=== PATIENT | female | born 1930 | race Caucasian/White ===

== ENCOUNTER 2016-09-19 11:11 | Emergency (ER) | payer MEDICARE ==
[~2016-09-19] VITALS: Ht 153.7 cm; Wt 54.1 kg
[~2016-09-19 11:11] MED LIST: ACET600C PO; ASCO-294 PO; AZEL23SP NS; Acetaminophen PO; CHOL10008 PO; CLON0.1T PO; CYCL1DRO AFFECT_EYE; CYCL1DRO OP; DESO15CR25 TOP; DIME25TA2 PO; FEXO-106 PO; FLUC150T3 PO; FLUT15.88 NS; IPRA15SP NS; KTC2C15 TP; MELA1TAB16 PO; METH4TAB12 PO; METO75TA PO; PROP1DRO BOTH_EYES; RANI150C4 PO; SERT25TA6 PO; SPIRONALACTONE PO; VITA2500 PO; VITA400C64 PO; WARF4TAB6 PO; ZOLP5TAB6 PO; [UNRECOGNIZED DRUG - OTHER] PO
[2016-09-19 11:21] VITALS: BP 167/102; PULSE 92; RESP 16; O2SAT 99
--- NOTE | 2016-09-19 11:25 | ED.REPORT ---
HPI-Trauma Minor / Fall Date of Service September 19, 2016 ED Provider: Yuri Yunier TONEY 86 year old female presents to the ER accompanied by her due to head injury status post mechanical ground level fall while lowering herself to the toilet this morning. She endorses striking her head during the fall but states that she didn't hit very hard. Patient denies LOC, neck pain, dysuria, and any significant injury secondary to the fall. expresses concern for the patient's mental status because the she initially attempted to open their laundry basket as if to urinate in it. Shortly after the incident her called patient's PCP, Dr. Ornelas, who referred her to the ER. She reports history of multiple falls over the past few months. Upon further questioning she admits to taking melatonin, Zolpidem, and Dramamine last night. Nursing Notes Stated Complaint: POST FALL/HEAD INJURY/CONFUSED Chief Complaint: Multiple Trauma/Fall Nursing Notes Reviewed: Yes Allergies: Coded Allergies: amlodipine besylate (Verified Allergy, Severe, RASH, 09/24/15) doxazosin mesylate (Verified Allergy, Severe, PALPITATIONS, LOW HEART RATE (35) AND IRREGULAR, 09/24/15) ipratropium bromide (Verified Allergy, Severe, PALPITATIONS AND DECREASED HEART RATE, 09/24/15) pt is prescribed med irbesartan (Verified Allergy, Severe, ARRHYTHMIA, 09/24/15) albuterol (Verified Allergy, Intermediate, PALPITATIONS AND DECREASED HEART RATE, 08/28/12) levalbuterol (Verified Allergy, Unknown, unknown, 09/24/15) cetirizine (Verified Adverse Reaction, Severe, palpitations, 09/24/15) citalopram (Verified Adverse Reaction, Severe, n&v, 09/24/15) clindamycin (Verified Adverse Reaction, Severe, diarrhea, 09/24/15) lisinopril (Verified Adverse Reaction, Severe, SEVERE COUGH, 09/24/15) valsartan (Verified Adverse Reaction, Severe, hair loss,palpitations, 09/23) hydrochlorothiazide (Verified Adverse Reaction, Intermediate, 09/24/15) tachycardia, arrhythmia naproxen (Verified Adverse Reaction, Intermediate, UPSET STOMACH, 09/24/15) oxycodone HCl (Verified Adverse Reaction, Intermediate, NAUSEA AND VOMITING, 09/24/15) Uncoded Allergies: NO SOAPS - EXCEPT NEUTROGENA CLEAR,FRAGRANCE FREE (Allergy, Unknown, ) TYLENOL WITH CODEINE (Adverse Reaction, Severe, CONFUSION, AGITATION, ) FLU SHOT (Adverse Reaction, Intermediate, GETS SICK FROM THE FLU SHOT, 08/28) Scheduled ([Spironalactone]) 12.5 MG PO DAILY HOLD Acetylcysteine (Nac) 600 Mg Capsule 600 MG PO DAILY Ascorbate Calcium (Vitamin C) 500 Mg Tablet 500 MG PO DAILY Azelastine/Fluticasone (Dymista Nasal [place]) 23 Gm [place].pump 1 SPRAY NS BID HOLD Azelastine/Fluticasone (Dymista Nasal [place]) 23 Gm [place].pump 1 SPRAY NS BID HOLD Cholecalciferol (Vitamin D3) (Vitamin D3) 1,000 Unit Tab.chew 1,000 UNIT PO BID Clonidine (Clonidine) 0.1 Mg Tablet 0.1 MG PO TID Cyclosporine (Restasis) 1 Each Droperette 1 EACH AFFECT_EYE BID Cyclosporine (Restasis) 1 Each [place]perette 1 EACH OP Q12H Desonide (Desonide Cream) 15 Gm Cream..g. 1 APPLIC TOP DAILY Fexofenadine (Fexofenadine) 180 Mg Tablet 180 MG PO DAILY HOLD Fluconazole (Fluconazole) 150 Mg Tablet 150 MG PO ONCE Fluticasone Propionate (Fluticasone Propionate) 50 Mcg/Actuation [place].susp 2 SPRAY NS DAILY Ipratropium [place] (Ipratropium [place] 0.06% Nasal) 15 Ml [place] 2 SPRAY NS DIRECTED HOLD Ketoconazole (Ketoconazole) 15 Gm Cream..g. 15 GM TP DIRECTED Methylprednisolone (MethylprednisoLONE) 4 Mg Tablet 4 MG PO UD Metoprolol Tartrate (Metoprolol Tartrate) 75 Mg Tablet 75 MG PO BID Propylene Glycol/Peg 400/Pf (Systane 0.3-0.4% Eye Drops) 1 Each [place] 1 EACH BOTH_EYES BID Ranitidine (Ranitidine) 150 Mg Capsule 150 MG PO BID Sertraline HCl (Sertraline) 25 Mg Tablet 25 MG PO DAILY Vitamin A (Vitamin A) 25,000 Unit Capsule 25,000 UNIT PO 4x/week Vitamin E Mixed (Vitamin E) 400 Unit Capsule 400 UNIT PO DAILY Warfarin Sodium (Warfarin Sodium) 4 Mg Tablet 4 MG PO HS Scheduled PRN ([Gas Free Xs]) 125 MG PO BID PRN PRN PRN ([Acetaminophen]) 325 MG TABLET 650 MG PO Q6H PRN PRN For Pain Dimenhydrinate (Dramamine) 25 Mg Tab.chew 50 MG PO Q6H PRN PRN prn Melatonin/Pyridoxine (Melatonin 5 mg Tablet) 1 Each Tablet 1 EACH PO HS PRN PRN prn Ranitidine (Ranitidine) 150 Mg Capsule 1-2 CAPSULE PO DAILY PRN PRN ALLERGY Zolpidem (Zolpidem) 5 Mg Tablet 5 MG PO HS PRN PRN For Insomnia General Time Seen by MD: 11:25 Chief Complaint Fall Hx Obtained From: Patient, Spouse Arrived By: Ambulance Onset Occurred: Just prior to arrival Symptom Duration: Since onset Caused by: Accidental, Fall on ground Context: Occurred at: Home injury Pertinent Negative: Pt denies other symptoms Similar Sx Previous: Yes Past Medical History Patient History: Patient reports no known family medical history. Past Medical History PAST MEDICAL HISTORY: 1. Hypertension. 2. Hyperaldosteronism. 3. 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 4. Asthma. 5. Hyperlipidemia. 6. Gastroesophageal reflux disease. 7. Arthritis. 8. Moderate aortic regurgitation. 9. Hyperthyroidism. Past Surgical History PAST SURGICAL HISTORY: 1. Tonsillectomy in 1956. 2. D and C in 1955, 1956, 1963 and 1964. 3. Thyroid adenoma excision in 1961. 4. Tubal ligation in 1973. 5. Stapedectomy, bilateral in 1978 and 1979. 6. Right knee arthroscopy in 1987. 7. Right foot bunionectomy in 1996. 8. Basal cell carcinoma excision from left cheek in 1996. 9. Right total knee replacement on January 27, 2004. 10. Revision left stapedectomy on June 04, 2005. 11. Lumbar laminectomy on September 18, 2006. 12. Hysteroscopy on May 16, 2007. 13. Basal cell carcinoma excision from nose on January 12, 2009. 14. Right nephrectomy and ureterectomy for transitional cell carcinoma on February 19, 2009. 15. Left carpal tunnel release on January 19, 2011. Smoking History Former Smoker Social History Alcohol Use: Denies alcohol use Drug Use: Denies drug use Ambulatory Status Independent Review of Systems Musculoskeletal: Denies: Back pain, Extremity pain, Lumbar pain, Neck pain, Thoracic pain Neurologic: Reports: Confusion, Denies: Headache, Numbness, Syncope Complete sys rev & neg: except as marked. Psychiatric: Reports: Change mental status Physical Exam Initial Vital Signs Vital Signs (First) Date Time Temp Pulse Resp B/P Pulse Ox O2 Delivery O2 Flow Rate FiO2 09/19/16 11:21 92 16 167/102 99 Room Air Initial VS: Reviewed Head / Eyes: Atraumatic, Normocephalic Abdomen / GI: Soft, Non-tender, No guarding, No rebound, No distention Extremities: Vascular intact, Neuro intact, No swelling, No tenderness Skin: Warm, Dry, No cyanosis Neurologic: Oriented General/Constitutional: Awake, Alert, Well developed, Well nourished Neck: Atraumatic, Supple, Full range of motion, No swelling, Non-tender, No midline vertebral tend Head / Eyes: Atraumatic, Normocephalic, PERRL Respiratory / Chest: Breath sounds NL, Breath sounds = bilat, No respiratory distress, No rales, No rhonchi, No wheezing, No chest tenderness, No chest wall deformity, No crepitus Cardiovascular: Heart rate NL, Regular rhythm, Heart sounds NL, Cap refill not delayed, Peripheral circulation NL Lower Extremity / Pelvis / MS: Full range of motion, Neurologic intact, Vascular intact Collection of spider veins to the anterior right ankle. Neurologic: Oriented X3, Speech NL, No motor deficits, No sensory deficits, CN II - XII intact, Cerebellar NL Interpretation & Diagnostics Lab Results Interpretation Result Diagram: 09/19/16 1203 09/19/16 1203 Test 09/19/16 12:03 09/19/16 12:46 09/19/16 12:55 White Blood Count 6.4th/mm3 (3.8-10.1) Red Blood Count 4.99mil/mm3 (3.90-5.20) Hemoglobin 14.4g/dL (12.0-15.6) Hematocrit 43.3% (35.0-46.0) Mean Corpuscular Volume 86.8fL (81-100) Mean Corpuscular Hemoglobin 28.9pg (27.0-35.0) Mean Corpuscular Hemoglobin Concent 33.3% (32.0-37.0) Red Cell Distribution Width 15.3% (12.3-15.4) Platelet Count 201bil/L (150-400) Neutrophils (%) (Auto) 72.8% (40-74) Lymphocytes (%) (Auto) 13.4% (14-46) Monocytes (%) (Auto) 11.3% (4-12) Eosinophils (%) (Auto) 2.2% (0-5) Basophils (%) (Auto) 0.3% (0-3) Prothrombin Time 23.7sec (8.1-12.5) Prothromb Time International Ratio 2.18ratio Sodium Level 135mEq/L (134-144) Potassium Level 4.3mEq/L (3.5-5.2) Chloride Level 96mEq/L (97-108) Carbon Dioxide Level 26mmol/L (18-29) Blood Urea Nitrogen 21mg/dL (8-27) Creatinine 0.76mg/dL (0.57-1.00) Estimat Glomerular Filtration Rate 104mL/min (>59) Glucose Level 101mg/dL (60-99) Calcium Level 10.2mg/dL (8.5-10.1) Total Bilirubin 1.2mg/dL (0.0-1.2) Aspartate Amino Transf (AST/SGOT) 22U/L (0-50) Alanine Aminotransferase (ALT/SGPT) 19U/L (0-32) Alkaline Phosphatase 117U/L (25-165) Total Protein 6.9g/dL (6.4-8.4) Albumin 4.1g/dL (3.4-5.0) Hold Gore Top Tube Received (Received) Urine Color Straw (YELLOW) Urine Appearance Hazy (CLEAR,HAZY) Urine pH 6.0 (5.0-8.0) Urine Specific [place] 1.010 (1.003-1.035) Urine Protein Negativemg/dL (NEG,TRACE) Urine Glucose (UA) Negativemg/dL (NEGATIVE) Urine Ketones Negativemg/dL (NEGATIVE) Urine Occult Blood Negative (NEGATIVE) Urine Nitrite Negative (NEGATIVE) Urine Bilirubin Negative (NEGATIVE) Urine Urobilinogen Normalmg/dL (NORMAL) Urine Leukocyte Esterase Negative (NEGATIVE) Urine RBC 0-2/hpf (0-2) Urine WBC 0-5/hpf (0-5) Urine Epithelial Cells Occasional/hpf (NONE-MOD) Urine Crystals None seen (NONE SEEN) Urine Bacteria None/hpf (NONE-FEW) Urine Hyaline Casts None/lpf (NONE) Urine Granular Casts None seen (NONE SEEN) Urine Waxy Casts None seen (NONE SEEN) Urine Red Blood Cell Casts None seen (NONE SEEN) Urine White Blood Cell Casts None seen (NONE SEEN) Urine Mucus None seen (None Seen) Urine Trichomonas None seen (NONE SEEN) Urine Yeast None (NONE SEEN) Urinalysis Comment None Urine Culture Reflexed Not indicated CT Head Interpretation IMPRESSION: 1. No acute intracranial process. 2. Moderate atrophy and chronic microvascular ischemic changes. Dictated by: Selma Robbins M.D. on 09/19/2016 at 12:19 Approved by: Selma Robbins M.D. on 09/19/2016 at 12:20 Study: Head CT no contrast Interpretation / Wet Read by: Interpret - Radiologist Re-Eval/Medical Decision Med Decision/Clinical Course Overall sounds like a mechanical fall secondary to polypharmacy. Patient admits to taking 3 different sleeping pills last night. Overall workup is reassuring. Head CT performed because of a fall on Coumadin. Return and follow-up precautions given. Source of Hx: Old records Re-Evaluation/Progress : Time of Eval: 13:20 Re-Evaluation/Progress Note: Discussed lab and imaging results and plan to discharge. Patient is amenable to the plan. Return precautions given. All other questions addressed. Counseled Regarding: Diagnosis, Lab results, Need for follow-up, When/why to return to ED Discharge & Departure Impression: Primary Impression: Fall at home Disposition: Home Discharge Condition All VS Reviewed: Yes Condition: Stable Additional Instructions: Take Tylenol for pain. Do not take more than one type of sleeping pill per day. Follow-up with your primary care provider later this week. Return to the ER if you develop new or concerning symptoms. Referrals: Sudhakar Nick MD (PCP) [place] Attestation Portions of this note were transcribed by Otto Ochoa. I, Dr. Welch, personally performed the history, physical exam and medical decision-making; I reviewed and confirmed the accuracy of the information in the transcribed note. Signed by: Shelley Suh, 09/19/2016 and *time* copies to: Sudhakar Nick MD, Timothy S DO September 19, 2016 11:25 OTTO OCHOA September 19, 2016 11:39
[2016-09-19 12:14] LABS: BASOPHILS % (AUTO) 0.3 % (0-3); EOSINOPHILS % (AUTO) 2.2 % (0-5); MONOCYTES % (AUTO) 11.3 % (4-12); Mean Corpuscular Hemoglobin 28.9 pg (27.0-35.0); Mean Corpuscular Volume 86.8 fL (81-100); NEUTROPHILS % (AUTO) 72.8 % (40-74); Platelet Count 201 bil/L (150-400)
--- NOTE | 2016-09-19 12:21 | DRSVH ---
PROCEDURE: CT BRAIN WITHOUT CONTRAST ([id number]) INDICATIONS: fall on coumadin, hit head TECHNIQUE: Noncontrast 4.5 mm thick angled axial sections acquired from the foramen magnum to the vertex, with c oronal reformats. COMPARISON: None. FINDINGS: Image quality: Excellent. CSF spaces: Basal cisterns are patent. No extra-axial fluid collections. The ventricles are symmet vanita in size and shape. Brain: No intracranial bleeds or masses. There is cerebral volume loss for age, with resultant vent ricular and sulcal prominence. There are periventricular and deep white matter chronic small vessel ischemic changes. There is intracranial internal carotid artery atherosclerosis. Skull and face: Calvarium and visualized facial bones appear intact, without suspicious lesions. Sinuses: Visualized sinuses and mastoids are clear. IMPRESSION: 1. No acute intracranial process. 2. Moderate atrophy and chronic microvascular ischemic changes. Dictated by: Selma Robbins M.D. on 09/19/2016 at 12:19 Approved by: Selma Robbins M.D. on 09/19/2016 at 12:20
[2016-09-19 12:37] LABS: INR 2.18 ratio
[2016-09-19 13:09] LABS: APPEARANCE,URINE HAZY (CLEAR,HAZY); COLOR,URINE STRAW (YELLOW)
[2016-09-19 13:10] LABS: OCCULT BLOOD,URINE NEGATIVE (NEGATIVE); UROBILINOGEN,URINE NORMAL (NORMAL)
[2016-09-19 13:37] VITALS: BP 167/105; PULSE 86; RESP 16; O2SAT 100
== END 2016-09-19 13:37 | disposition home or self-care (01) ==
LOC: SED 11:11
DX: Z04.3 Encounter for examination and observation following other accident (principal); W18.30XA Fall on same level, unspecified, initial encounter; Y92.002 Bathroom of unspecified non-institutional (private) residence as the place of occurrence of the external cause; Y93.89 Activity, other specified; Y99.8 Other external cause status; I10 Essential (primary) hypertension; E26.9 Hyperaldosteronism, unspecified; J45.909 Unspecified asthma, uncomplicated; E78.5 Hyperlipidemia, unspecified; K21.9 Gastro-esophageal reflux disease without esophagitis; M19.90 Unspecified osteoarthritis, unspecified site; E05.90 Thyrotoxicosis, unspecified without thyrotoxic crisis or storm; Z91.81 History of falling; Z90.5 Acquired absence of kidney; Z90.6 Acquired absence of other parts of urinary tract; Z87.891 Personal history of nicotine dependence; Z79.01 Long term (current) use of anticoagulants; Z88.8 Allergy status to other drugs, medicaments and biological substances; Z88.1 Allergy status to other antibiotic agents; Z88.6 Allergy status to analgesic agent; Z88.5 Allergy status to narcotic agent; Z88.7 Allergy status to serum and vaccine

== ENCOUNTER 2016-12-19 08:11 | Inpatient (IN) | payer MEDICARE ==
[2016-12-19 08:15] VITALS: BP 124/96; PULSE 93; RESP 26; O2SAT 98
[2016-12-19] MEDS ORDERED: 0.9% Sodium Chloride 1,000 ML IV ONE (08:17)
[2016-12-19 08:20] VITALS: BP 124/96; PULSE 89; RESP 24; O2SAT 100
[2016-12-19] MEDS ORDERED: Ondansetron 2 mg/mL 2 mL Inj IVPUSH PRN (08:20)
--- NOTE | 2016-12-19 08:29 | ED.REPORT ---
HPI-Neurologic Deficit Date of Service Dec 19, 2016 ED Provider: Yunier Welch DO Patient is a n 86 year old female with a hx of HTN, Thyroid disease, valvular heart disease, hyperlipidemia, asthma, kidney cancer, and afib on Warfarin who presents to the ED via EMS for a decreased LOC found by her 20 minutes prior to arrival. Her last known normal was last night. Her reports she has had a general decline over the weekend. Per records reviewed, she is DNR as of 2010 during her last admission here. Multiple attempts to contact family were made without success. Nursing Notes Stated Complaint: LEFT SIDED DROOP Chief Complaint: Neuro Symptoms/ Deficits Nursing Notes Reviewed: Yes Allergies: Coded Allergies: amlodipine besylate (Verified Allergy, Severe, RASH, 09/24/15) doxazosin mesylate (Verified Allergy, Severe, PALPITATIONS, LOW HEART RATE (35) AND IRREGULAR, 09/24/15) ipratropium bromide (Verified Allergy, Severe, PALPITATIONS AND DECREASED HEART RATE, 09/24/15) pt is prescribed med irbesartan (Verified Allergy, Severe, ARRHYTHMIA, 09/24/15) albuterol (Verified Allergy, Intermediate, PALPITATIONS AND DECREASED HEART RATE, 08/28/12) levalbuterol (Verified Allergy, Unknown, unknown, 09/24/15) cetirizine (Verified Adverse Reaction, Severe, palpitations, 09/24/15) citalopram (Verified Adverse Reaction, Severe, n&v, 09/24/15) clindamycin (Verified Adverse Reaction, Severe, diarrhea, 09/24/15) lisinopril (Verified Adverse Reaction, Severe, SEVERE COUGH, 09/24/15) valsartan (Verified Adverse Reaction, Severe, hair loss,palpitations, 09/23) hydrochlorothiazide (Verified Adverse Reaction, Intermediate, 09/24/15) tachycardia, arrhythmia naproxen (Verified Adverse Reaction, Intermediate, UPSET STOMACH, 09/24/15) oxycodone HCl (Verified Adverse Reaction, Intermediate, NAUSEA AND VOMITING, 09/24/15) Uncoded Allergies: NO SOAPS - EXCEPT NEUTROGENA CLEAR,FRAGRANCE FREE (Allergy, Unknown, ) TYLENOL WITH CODEINE (Adverse Reaction, Severe, CONFUSION, AGITATION, ) FLU SHOT (Adverse Reaction, Intermediate, GETS SICK FROM THE FLU SHOT, 08/28) Scheduled ([Spironalactone]) 12.5 MG PO DAILY HOLD Acetylcysteine (Nac) 600 Mg Capsule 600 MG PO DAILY Ascorbate Calcium (Vitamin C) 500 Mg Tablet 500 MG PO DAILY Azelastine/Fluticasone (Dymista Nasal [place]) 23 Gm [place].pump 1 SPRAY NS BID HOLD Cholecalciferol (Vitamin D3) (Vitamin D3) 1,000 Unit Tab.chew 1,000 UNIT PO BID Clonidine (Clonidine) 0.1 Mg Tablet 0.1 MG PO TID Cyclosporine (Restasis) 1 Each Droperette 1 EACH AFFECT_EYE BID Cyclosporine (Restasis) 1 Each Droperette 1 EACH OP Q12H Desonide (Desonide Cream) 15 Gm Cream..g. 1 APPLIC TOP DAILY Fexofenadine (Fexofenadine) 180 Mg Tablet 180 MG PO DAILY HOLD Fluconazole (Fluconazole) 150 Mg Tablet 150 MG PO ONCE Fluticasone Propionate (Fluticasone Propionate) 50 Mcg/Actuation [place].susp 2 SPRAY NS DAILY Ipratropium [place] (Ipratropium [place] 0.06% Nasal) 15 Ml [place] 2 SPRAY NS DIRECTED HOLD Ketoconazole (Ketoconazole) 15 Gm Cream..g. 15 GM TP DIRECTED Methylprednisolone (MethylprednisoLONE) 4 Mg Tablet 4 MG PO UD Metoprolol Tartrate (Metoprolol Tartrate) 75 Mg Tablet 75 MG PO BID Propylene Glycol/Peg 400/Pf (Systane 0.3-0.4% Eye Drops) 1 Each Droperette 1 EACH BOTH_EYES BID Ranitidine (Ranitidine) 150 Mg Capsule 150 MG PO BID Sertraline HCl (Sertraline) 25 Mg Tablet 25 MG PO DAILY Vitamin A (Vitamin A) 25,000 Unit Capsule 25,000 UNIT PO 4x/week Vitamin E Mixed (Vitamin E) 400 Unit Capsule 400 UNIT PO DAILY Warfarin Sodium (Warfarin Sodium) 4 Mg Tablet 4 MG PO HS Scheduled PRN ([Gas Free Xs]) 125 MG PO BID PRN PRN PRN ([Acetaminophen]) 325 MG TABLET 650 MG PO Q6H PRN PRN For Pain Dimenhydrinate (Dramamine) 25 Mg Tab.chew 50 MG PO Q6H PRN PRN prn Melatonin/Pyridoxine (Melatonin 5 mg Tablet) 1 Each Tablet 1 EACH PO HS PRN PRN prn Ranitidine (Ranitidine) 150 Mg Capsule 1-2 CAPSULE PO DAILY PRN PRN ALLERGY Zolpidem (Zolpidem) 5 Mg Tablet 5 MG PO HS PRN PRN For Insomnia General Time Seen by Provider: 08:12 Chief Complaint Mental status change Hx Obtained From: EMS Arrived By: Ambulance Sudden in Onset?: Yes Context of Onset: During sleep Risk Factors NIH Stroke Scale NIHSS Score: 27 (using modified stroke scale ) Time NIHSS Performed: 08:13 Date NIHSS Performed: Dec 19, 2016 [place] Coma Score > Age 5 Eye Opening: No response (1) Verbal Response: Incomprehensible (2) Motor Response: Withdraws to pain (4) [place] Coma Score: 7 Past Medical History Patient History: Patient reports no known family medical history. Past Medical History PAST MEDICAL HISTORY: 1. Hypertension. 2. Hyperaldosteronism. 3. 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 4. Asthma. 5. Hyperlipidemia. 6. Gastroesophageal reflux disease. 7. Arthritis. 8. Moderate aortic regurgitation. 9. Hyperthyroidism. 10. valvular heart disease Past Surgical History PAST SURGICAL HISTORY: 1. Tonsillectomy in 1956. 2. D and C in 1955, 1956, 1963 and 1964. 3. Thyroid adenoma excision in 1961. 4. Tubal ligation in 1973. 5. Stapedectomy, bilateral in 1978 and 1979. 6. Right knee arthroscopy in 1987. 7. Right foot bunionectomy in 1996. 8. Basal cell carcinoma excision from left cheek in 1996. 9. Right total knee replacement on January 27, 2004. 10. Revision left stapedectomy on June 04, 2005. 11. Lumbar laminectomy on September 18, 2006. 12. Hysteroscopy on May 16, 2007. 13. Basal cell carcinoma excision from nose on January 12, 2009. 14. Right nephrectomy and ureterectomy for transitional cell carcinoma on February 19, 2009. 15. Left carpal tunnel release on January 19, 2011. Smoking History Former Smoker Social History Alcohol Use: Denies alcohol use Drug Use: Denies drug use Ambulatory Status Independent Unable to Obtain History Past medical history, Past surgical history, Family history, Smoking history, Social history, Occupation, Ambulatory status Review of Systems Unable to Obtain ROS Patient condition, Mental status Physical Exam Initial Vital Signs Vital Signs (First) Date Time Temp Pulse Resp B/P Pulse Ox O2 Delivery O2 Flow Rate FiO2 12/19/16 08:15 93 26 124/96 98 Room Air 12/19/16 08:20 36.4 Initial VS: Reviewed, Vital signs abnormal Skin: Warm, Dry Alertness: Positive: Responds to pain stimuli, Somnolent Head / Eyes: Atraumatic, Normocephalic L sided facial droop Respiratory / Chest: Atraumatic, Breath sounds = bilat coarse rhonchi bilat, hypoxic Cardiovascular: Heart rate NL Mental Status: Positive: Responds to painful stim, Somnolent Stroke scale score 27 Neck: No swelling Fixed gaze Upper Extremity / MS: Atraumatic Lower Extremity / Pelvis / MS: Atraumatic Interpretation & Diagnostics Lab Results Interpretation Result Diagram: 12/19/1682112/19/16 0822 Test 12/19/16 08:22 White Blood Count 8.4th/mm3 (3.8-10.1) Red Blood Count 5.32mil/mm3 (3.90-5.20) Hemoglobin 15.2g/dL (12.0-15.6) Hematocrit 46.4% (35.0-46.0) Mean Corpuscular Volume 87.2fL (81-100) Mean Corpuscular Hemoglobin 28.6pg (27.0-35.0) Mean Corpuscular Hemoglobin Concent 32.8% (32.0-37.0) Red Cell Distribution Width 15.0% (12.3-15.4) Platelet Count 235bil/L (150-400) Neutrophils (%) (Auto) 61.5% (40-74) Lymphocytes (%) (Auto) 22.6% (14-46) Monocytes (%) (Auto) 11.9% (4-12) Eosinophils (%) (Auto) 3.5% (0-5) Basophils (%) (Auto) 0.4% (0-3) Prothrombin Time 38.9sec (8.1-12.5) Prothromb Time International Ratio 3.54ratio Activated Partial Thromboplast Time 39.4sec (22.8-33.0) Sodium Level 139mEq/L (134-144) Potassium Level 4.2mEq/L (3.5-5.2) Chloride Level 98mEq/L (97-108) Carbon Dioxide Level 23mmol/L (18-29) Blood Urea Nitrogen 18mg/dL (8-27) Creatinine 0.76mg/dL (0.57-1.00) Estimat Glomerular Filtration Rate 104mL/min (>59) Glucose Level 112mg/dL (60-99) Calcium Level 10.0mg/dL (8.5-10.1) Total Bilirubin 1.6mg/dL (0.0-1.2) Aspartate Amino Transf (AST/SGOT) 23U/L (0-50) Alanine Aminotransferase (ALT/SGPT) 22U/L (0-32) Alkaline Phosphatase 121U/L (25-165) Troponin T 0.010ug/L (0.0-0.011) Total Protein 6.9g/dL (6.4-8.4) Albumin 4.2g/dL (3.4-5.0) X-Ray Chest Interpretation Chest Xray Interpretation: IMPRESSION: Mild pulmonary edema pattern but no focal consolidation found. The heart size is at or just below the upper limits of normal considering patient rotation leftward. Dictated by: Patrick Menchaca M.D. on 12/19/2016 at 9:01 Approved by: Patrick Menchaca M.D. on 12/19/2016 at 9:03 View: Portable, 1 view Interpretation / Wet Read by: Interpret - Radiologist CT Head Interpretation IMPRESSION: 1. Large acute right basal ganglia parenchymal bleed with extension into the ventricles. 2. Approximately 1.1 cm of [id number] subfalcine herniation. 3. Findings telephoned to Dr. Yunier Welch on 12/19/16 at 0839 hours. Dictated by: Jeannie Wiseman MD, PhD on 12/19/2016 at 8:38 Approved by: Jeannie Wiseman MD, PhD on 12/19/2016 at 8:44 Study: Head CT no contrast Interpretation / Wet Read by: Interpret - Radiologist Re-Eval/Medical Decision Med Decision/Clinical Course Devastating intracranial hemorrhage with warfarin induced coagulopathy, severe altered level of consciousness, and hypoxia. Care was initiated prior to arrival when prehospital staff notify us of a high-risk patient. Physician, nurses, and other ancillary staff were at the bedside awaiting this patient. She was found to be severely altered with a low [place] Coma Scale. However after reviewing records it appeared that she was previously a DO NOT RESUSCITATE DO NOT INTUBATE patient. She was placed on high flow oxygen rather than intubation. She was sent urgently over to CT which revealed a massive intracranial hemorrhage with midline shift. Multiple attempts were made at contacting family and were unsuccessful via telephone. Ultimately the showed up, confirmed the patient's wishes to be DNR/DNI. At that point patient care was descalated and the patient was made comfort measures only. It should be noted that vitamin K and K Centra were ordered however not given. Patient will be admitted for comfort measures and expectant management Re-Evaluation/Progress #1: Time of Eval: 08:43 )( Re-Eval Neurologic Exam: Speech abnormal Re-Evaluation/Progress Note: Patient is 93% on non-rebreather continues to be somnolent Re-Evaluation/Progress #2: Time of Eval: 08:46 )( Re-Eval Neurologic Exam: Speech abnormal Re-Evaluation/Progress Note: Rechecked patient who is stable. has arrived. reports he woke and found the patient with a L facial droop and he could not get her to stand. He proceeded to call EMS. He denies pt having any recent falls. Discussed pt's case and confirmed that pt is DNR. Discussed plan for admission. Pt's understands and agrees with plan. All questions addressed at this time. Re-Evaluation/Progress #3: Time of Eval: 09:03 )( Re-Eval Neurologic Exam: Speech abnormal Re-Evaluation/Progress Note: Rechecked pt. Removed oxygen. 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 Accepts admit. Counseled Regarding: Diagnosis, Lab results, Need for admission Discharge & Departure Impression: Primary Impression: Hemorrhagic stroke Disposition: ADMITTED TO HOSPITAL Discharge Condition All VS Reviewed: Yes Condition: Stable Referrals: Sudhakar Nick MD (PCP) Crit Care Except Billable Proc Time Spent: 75-104 minutes Services Performed: Patient management by me, Time spent at bedside, Reviewing test results, Reviewing imaging, Discussing patient care, Documentation in record, Time with fam/surrogate Critical Care Notes: See MDM Scribe Attestation Portions of this note were transcribed by Ronn Haynes. I, Dr. Welch personally performed the history, physical exam and medical decision-making; I reviewed and confirmed the accuracy of the information in the transcribed note. Signed by: Shelley Rice, 12/19/16 copies to: Sudhakar Nick MD, Timothy S DO Dec 19, 2016 08:29 RONN HAYNES Dec 19, 2016 08:46
[2016-12-19 08:30] LABS: BASOPHILS % (AUTO) 0.4 % (0-3); EOSINOPHILS % (AUTO) 3.5 % (0-5); MONOCYTES % (AUTO) 11.9 % (4-12); Mean Corpuscular Hemoglobin 28.6 pg (27.0-35.0); Mean Corpuscular Volume 87.2 fL (81-100); NEUTROPHILS % (AUTO) 61.5 % (40-74); Platelet Count 235 bil/L (150-400)
[2016-12-19 08:35] LABS: INR 3.54 ratio
[2016-12-19 08:40] LABS: TROPONIN T 0.01 ug/L (0.0-0.011)
[2016-12-19] MEDS ORDERED: Phytonadione (Adult) 10 MG in Dextrose 5%-Pha MIX 50 ML IV ONE (08:45)
[2016-12-19] MEDS ORDERED: PROTHROMBIN COMPLEX IV ONE (08:45)
[2016-12-19] MEDS ORDERED: Labetalol 5 mg/mL 4 mL Inj IVPUSH ONE (08:45)
--- NOTE | 2016-12-19 08:46 | DRSVH ---
PROCEDURE: CT BRAIN WITHOUT CONTRAST ([id number]) INDICATIONS: Decreased level of consciousness. TECHNIQUE: Noncontrast 4.5 mm thick angled axial sections acquired from the foramen magnum to the vertex, with c oronal reformats. COMPARISON: None. FINDINGS: Image quality: Excellent. CSF spaces: Basal cisterns are patent. No extra-axial fluid collections. The ventricles are symmet vanita in size and shape. Brain: Large parenchymal hematoma measuring approximately 6 cm in diameter centered in the right basa l ganglia. There is extension of the parenchymal bleed into the ventricles with acute hemorrhage note d in the lateral ventricles, third ventricle, cerebral aqueduct, the fourth ventricles and extending to the foramina of [place]. There is approximately 1.1 cm of right to left subfalcine herniation. The re is cerebral volume loss for age, with resultant ventricular and sulcal prominence. There are farnaz ventricular and deep white matter chronic small vessel ischemic changes. There is intracranial inter nal carotid artery and vertebral artery atherosclerosis. Skull and face: Calvarium and visualized facial bones appear intact, without suspicious lesions. Sinuses: Visualized sinuses and mastoids are clear. IMPRESSION: 1. Large acute right basal ganglia parenchymal bleed with extension into the ventricles. 2. Approximately 1.1 cm of [id number]-ri-mxmc subfalcine herniation. 3. Findings telephoned to Dr. Yunier Welch on 12/19/16 at 0839 hours. Dictated by: Jeannie Wiseman MD, PhD on 12/19/2016 at 8:38 Approved by: Jeannie Wiseman MD, PhD on 12/19/2016 at 8:44
--- NOTE | 2016-12-19 09:04 | DRSVH ---
PROCEDURE: X-RAY CHEST ONE VIEW, PORTABLE ([id number]) INDICATIONS: cva, aspiration TECHNIQUE: One view of the chest was acquired. COMPARISON: [facility], , CHEST 1VW (PORTABLE), 09/20/2012, 22:02. FINDINGS: Surgical changes and devices: None. Lungs and pleura: No pleural effusions or pneumothorax. Lungs are abnormal with a mild pulmonary ed murali pattern. Mediastinum: Mediastinal contours appear normal. Heart size is normal considering patient rotation leftward. Bones and chest wall: No suspicious bony lesions. Overlying soft tissues appear unremarkable. IMPRESSION: Mild pulmonary edema pattern but no focal consolidation found. The heart size is at or j ust below the upper limits of normal considering patient rotation leftward. Dictated by: Patrick Menchaca M.D. on 12/19/2016 at 9:01 Approved by: Patrick Menchaca M.D. on 12/19/2016 at 9:03
[2016-12-19 09:38] VITALS: BP 180/122
[2016-12-19] MEDS ORDERED: NS IV SCH (10:10)
[2016-12-19] MEDS ORDERED: MORPHINE IV SCH (10:10)
[2016-12-19 10:33] VITALS: BP 180/122; PULSE 89; RESP 24; O2SAT 100
--- NOTE | 2016-12-19 11:02 | NUR ---
pt shortly after getting to room 1025 pt checked by 2 RNS was found to have no heartbeat or breath sounds, pupils fixed and dilated. given as much time as he needed to spend with pt. He is still undecided on a home. He will be notifying us of his decision. Pt was wearing no jewelry except her watch, watch and personal clothing sent home with . Dr Morales notified of pts passing.
--- NOTE | 2016-12-19 12:12 | NUR ---
spiritual care: support to family met in ER, accompanied him to room 1025, supportive listening, contact assistance, Pt peacefully. prayer. Pt's culinary intern arrived shortly afterwards.
--- NOTE | 2016-12-19 12:24 | NUR ---
mophine gtt received 100cc bag of morphine 1mg/1cc from [facility] when pt was transferred to floor, pt before had a chance to start it. Bag was wasted by this nurse with Yu Colon as witness.
--- NOTE | 2016-12-19 14:18 | PCM.HPMED ---
Subjective Date of Service Dec 19, 2016 Primary Provider: Admitting Physician: Brcue Morales MD Primary Care Physician: Sudhakar Nick MD Attending Physician: Bruce Morales MD Admit Status: From the Emergency Department, Full Admit Chief Complaint: Loss of Consciousness/20 minutes prior to arrival History of Present Illness: History limited due to patient's status with patient in coma was GCS 3 per ED not e Patient is a n 86 year old female with a hx of HTN, Thyroid disease, valvular heart disease, hyperlipidemia, asthma, kidney cancer, and afib on Warfarin who presents to the ED via EMS for a decreased LOC found by her 20 minutes prior to arrival. Her last known normal was last night. Her reports she has had a general decline over the weekend. Per records reviewed, she is DNR as of 2010 during her last admission here, Patient reportedly was found was a floor by her 20 minutes prior to arrival . ED coruse:She was found to be unresponsive with GCS 3/15 , acute hypoxic respiratory failure saturating the 70s CT Large acute right basal ganglia parenchymal bleed with extension into the ventricles. arrived to ED ,he opted for comfort care when he understood situation Patient was started on morphine drip and admission requested for comfort care inpatient course : Patient admitted to [facility] . Exam limited with GCS 3/15, patient gasping She few minutes after arrival to the floor Pronounced at 1102 Review of Systems: Unable to obtain Allergies Coded Allergies: amlodipine besylate (Verified Allergy, Severe, RASH, 09/24/15) doxazosin mesylate (Verified Allergy, Severe, PALPITATIONS, LOW HEART RATE (35) AND IRREGULAR, 09/24/15) ipratropium bromide (Verified Allergy, Severe, PALPITATIONS AND DECREASED HEART RATE, 09/24/15) pt is prescribed med irbesartan (Verified Allergy, Severe, ARRHYTHMIA, 09/24/15) albuterol (Verified Allergy, Intermediate, PALPITATIONS AND DECREASED HEART RATE, 08/28/12) levalbuterol (Verified Allergy, Unknown, unknown, 09/24/15) cetirizine (Verified Adverse Reaction, Severe, palpitations, 09/24/15) citalopram (Verified Adverse Reaction, Severe, n&v, 09/24/15) clindamycin (Verified Adverse Reaction, Severe, diarrhea, 09/24/15) lisinopril (Verified Adverse Reaction, Severe, SEVERE COUGH, 09/24/15) valsartan (Verified Adverse Reaction, Severe, hair loss,palpitations, 09/23) hydrochlorothiazide (Verified Adverse Reaction, Intermediate, 09/24/15) tachycardia, arrhythmia naproxen (Verified Adverse Reaction, Intermediate, UPSET STOMACH, 09/24/15) oxycodone HCl (Verified Adverse Reaction, Intermediate, NAUSEA AND VOMITING, 09/24/15) Uncoded Allergies: NO SOAPS - EXCEPT NEUTROGENA CLEAR,FRAGRANCE FREE (Allergy, Unknown, ) TYLENOL WITH CODEINE (Adverse Reaction, Severe, CONFUSION, AGITATION, ) FLU SHOT (Adverse Reaction, Intermediate, GETS SICK FROM THE FLU SHOT, 08/28) Home Medications per ED note Scheduled ([Spironalactone]) 12.5 MG PO DAILY HOLD Acetylcysteine (Nac) 600 Mg Capsule 600 MG PO DAILY Ascorbate Calcium (Vitamin C) 500 Mg Tablet 500 MG PO DAILY Azelastine/Fluticasone (Dymista Nasal [place]) 23 Gm [place].pump 1 SPRAY NS BID HOLD Cholecalciferol (Vitamin D3) (Vitamin D3) 1,000 Unit Tab.chew 1,000 UNIT PO BID Clonidine (Clonidine) 0.1 Mg Tablet 0.1 MG PO TID Cyclosporine (Restasis) 1 Each Droperette 1 EACH AFFECT_EYE BID Cyclosporine (Restasis) 1 Each [place]pe[place] 1 EACH OP Q12H Desonide (Desonide Cream) 15 Gm Cream..g. 1 APPLIC TOP DAILY Fexofenadine (Fexofenadine) 180 Mg Tablet 180 MG PO DAILY HOLD Fluconazole (Fluconazole) 150 Mg Tablet 150 MG PO ONCE Fluticasone Propionate (Fluticasone Propionate) 50 Mcg/Actuation [place].susp 2 SPRAY NS DAILY Ipratropium [place] (Ipratropium [place] 0.06% Nasal) 15 Ml [place] 2 SPRAY NS DIRECTED HOLD Ketoconazole (Ketoconazole) 15 Gm Cream..g. 15 GM TP DIRECTED Methylprednisolone (MethylprednisoLONE) 4 Mg Tablet 4 MG PO UD Metoprolol Tartrate (Metoprolol Tartrate) 75 Mg Tablet 75 MG PO BID Propylene Glycol/Peg 400/Pf (Systane 0.3-0.4% Eye Drops) 1 Each [place] 1 EACH BOTH_EYES BID Ranitidine (Ranitidine) 150 Mg Capsule 150 MG PO BID Sertraline HCl (Sertraline) 25 Mg Tablet 25 MG PO DAILY Vitamin A (Vitamin A) 25,000 Unit Capsule 25,000 UNIT PO 4x/week Vitamin E Mixed (Vitamin E) 400 Unit Capsule 400 UNIT PO DAILY Warfarin Sodium (Warfarin Sodium) 4 Mg Tablet 4 MG PO HS Scheduled PRN ([Gas Free Xs]) 125 MG PO BID PRN PRN PRN ([Acetaminophen]) 325 MG TABLET 650 MG PO Q6H PRN PRN For Pain Dimenhydrinate (Dramamine) 25 Mg Tab.chew 50 MG PO Q6H PRN PRN prn Melatonin/Pyridoxine (Melatonin 5 mg Tablet) 1 Each Tablet 1 EACH PO HS PRN PRN prn Ranitidine (Ranitidine) 150 Mg Capsule 1-2 CAPSULE PO DAILY PRN PRN ALLERGY Zolpidem (Zolpidem) 5 Mg Tablet 5 MG PO HS PRN PRN For Insomnia PMH per ED note \ PAST MEDICAL HISTORY: 1. Hypertension. 2. Hyperaldosteronism. 3. 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 4. Asthma. 5. Hyperlipidemia. 6. Gastroesophageal reflux disease. 7. Arthritis. 8. Moderate aortic regurgitation. 9. Hyperthyroidism. 10. valvular heart disease Surgical History per ED note PAST SURGICAL HISTORY: 1. Tonsillectomy in 1956. 2. D and C in 1955, 1956, 1963 and 1964. 3. Thyroid adenoma excision in 1961. 4. Tubal ligation in 1973. 5. Stapedectomy, bilateral in 1978 and 1979. 6. Right knee arthroscopy in 1987. 7. Right foot bunionectomy in 1996. 8. Basal cell carcinoma excision from left cheek in 1996. 9. Right total knee replacement on January 27, 2004. 10. Revision left stapedectomy on June 04, 2005. 11. Lumbar laminectomy on September 18, 2006. 12. Hysteroscopy on May 16, 2007. 13. Basal cell carcinoma excision from nose on January 12, 2009. 14. Right nephrectomy and ureterectomy for transitional cell carcinoma on February 19, 2009. 15. Left carpal tunnel release on January 19, 2011. Family History Unable to obtain Social History Hx Alcohol Use: No Hx Substance Use: No Hx Tobacco Use: Yes (QUIT 45 YEARS AGO.) Smoking Status: Former Smoker Exam Vital Signs Vital Sign - Last Date Time Temp Pulse Resp B/P Pulse Ox O2 Delivery O2 Flow Rate FiO2 12/19/16 10:33 36.4 89 24 180/122 100 Room Air Exam GCS 3/15 pupils dilated ronchi all over no sign of trauma , no laceration Lab and Diagnostics Result Diagram: 12/19/1682112/19/16 08 X-Rays, CTs and MRIs PROCEDURE: CT BRAIN WITHOUT CONTRAST ([id number]) INDICATIONS: Decreased level of consciousness. TECHNIQUE: Noncontrast 4.5 mm thick angled axial sections acquired from the foramen magnum to the vertex, with coronal reformats. COMPARISON: None. FINDINGS: Image quality: Excellent. CSF spaces: Basal cisterns are patent. No extra-axial fluid collections. The ventricles are symmetric in size and shape. Brain: Large parenchymal hematoma measuring approximately 6 cm in diameter centered in the right basal ganglia. There is extension of the parenchymal bleed into the ventricles with acute hemorrhage noted in the lateral ventricles , third ventricle, cerebral aqueduct, the fourth ventricles and extending to the foramina of [place]. There is approximately 1.1 cm of right to left subfalcine herniation. There is cerebral volume loss for age, with resultant ventricular and sulcal prominence. There are periventricular and deep white matter chronic small vessel ischemic changes. There is intracranial internal carotid artery and vertebral artery atherosclerosis. Skull and face: Calvarium and visualized facial bones appear intact, without suspicious lesions. Sinuses: Visualized sinuses and mastoids are clear. IMPRESSION: 1. Large acute right basal ganglia parenchymal bleed with extension into the ventricles. 2. Approximately 1.1 cm of yqjii-[id number] subfalcine herniation. 3. Findings telephoned to Dr. Yunier Welch on 12/19/16 at 0839 hours. Dictated by: Jeannie Wiseman MD, PhD on 12/19/2016 at 8:38 Assessment & Plan 86 year old female with a hx of HTN, Thyroid disease, valvular heart disease, hyperlipidemia, asthma, kidney cancer, and afib on Warfarin who presents to the ED via EMS for a decreased LOC found by her 20 minutes prior to arrival. # acute right basal ganglia parenchymal bleed with extension into the ventricles -ICH in setting of warfarin therapy -Reversal of anticoagulation not done per family opted for comfort care -Pronounced at 1102 -cause of hemorrhagic stroke in setting of warfarin therapy # acute hypoxic respiratory failure -initial sat 70's # h/o Afib on warfarin Bruce Morales MD Dec 19, 2016 14:18
--- NOTE | 2016-12-19 14:36 | PCM.DC.MED ---
Discharge Summary Date of Service Dec 19, 2016 Dates of Hospitalization Date of Hospital Admission Dec 19, 2016 at 10:21 Date of Discharge: Dec 19, 2016 Providers: Admitting Physician: Bruce Morales MD Primary Care Physician: Sudhakar Nick MD Attending Physician: Bruce Morales MD Diagnosis at Time of Discharge Diagnosis at Time of Discharge # acute right basal ganglia parenchymal bleed with extension into the ventricles /hemorrhagic stroke in setting of warfarin use # acute hypoxic respiratory failure due to stroke # afib on warfarin Procedures XRay, CTs & MRIs PROCEDURE: CT BRAIN WITHOUT CONTRAST ([id number]) INDICATIONS: Decreased level of consciousness. TECHNIQUE: Noncontrast 4.5 mm thick angled axial sections acquired from the foramen magnum to the vertex, with coronal reformats. COMPARISON: None. FINDINGS: Image quality: Excellent. CSF spaces: Basal cisterns are patent. No extra-axial fluid collections. The ventricles are symmetric in size and shape. Brain: Large parenchymal hematoma measuring approximately 6 cm in diameter centered in the right basal ganglia. There is extension of the parenchymal bleed into the ventricles with acute hemorrhage noted in the lateral ventricles , third ventricle, cerebral aqueduct, the fourth ventricles and extending to the foramina of Luschka. There is approximately 1.1 cm of right to left subfalcine herniation. There is cerebral volume loss for age, with resultant ventricular and sulcal prominence. There are periventricular and deep white matter chronic small vessel ischemic changes. There is intracranial internal carotid artery and vertebral artery atherosclerosis. Skull and face: Calvarium and visualized facial bones appear intact, without suspicious lesions. Sinuses: Visualized sinuses and mastoids are clear. IMPRESSION: 1. Large acute right basal ganglia parenchymal bleed with extension into the ventricles. 2. Approximately 1.1 cm of [id number] subfalcine herniation. 3. Findings telephoned to Dr. Yunier Welch on 12/19/16 at 0839 hours. Dictated by: Jeannie Wiseman MD, PhD on 12/19/2016 at 8:38 PROCEDURE: X-RAY CHEST ONE VIEW, PORTABLE ([id number]) INDICATIONS: cva, aspiration TECHNIQUE: One view of the chest was acquired. COMPARISON: [facility], , CHEST 1VW (PORTABLE), 09/20/2012, 22:02. FINDINGS: Surgical changes and devices: None. Lungs and pleura: No pleural effusions or pneumothorax. Lungs are abnormal with a mild pulmonary edema pattern. Mediastinum: Mediastinal contours appear normal. Heart size is normal considering patient rotation leftward. Bones and chest wall: No suspicious bony lesions. Overlying soft tissues appear unremarkable. IMPRESSION: Mild pulmonary edema pattern but no focal consolidation found. The heart size is at or just below the upper limits of normal considering patient rotation leftward. Dictated by: Patrick Menchaca M.D. on 12/19/2016 at 9:01 Brief History per HPI History limited due to patient's status with patient in coma was GCS 3 per ED not e Patient is a n 86 year old female with a hx of HTN, Thyroid disease, valvular heart disease, hyperlipidemia, asthma, kidney cancer, and afib on Warfarin who presents to the ED via EMS for a decreased LOC found by her 20 minutes prior to arrival. Her last known normal was last night. Her reports she has had a general decline over the weekend. Per records reviewed, she is DNR as of 2010 during her last admission here, Patient reportedly was found was a floor by her 20 minutes prior to arrival . ED coruse:She was found to be unresponsive with GCS 3/15 , acute hypoxic respiratory failure saturating the 70s CT Large acute right basal ganglia parenchymal bleed with extension into the ventricles. arrived to ED ,he opted for comfort care when he understood situation Patient was started on morphine drip and admission requested for comfort care inpatient course : Patient admitted to [facility] . Exam limited with GCS 3/15, patient gasping She few minutes after arrival to the floor Pronounced at 1102 Hospital Course per HPI 86 year old female with a hx of HTN, Thyroid disease, valvular heart disease, hyperlipidemia, asthma, kidney cancer, and afib on Warfarin who presents to the ED via EMS for a decreased LOC found by her 20 minutes prior to arrival. # acute right basal ganglia parenchymal bleed with extension into the ventricles -ICH in setting of warfarin therapy -Reversal of anticoagulation not done per family opted for comfort care -Pronounced at 1102 on 12/19/16 -cause of hemorrhagic stroke in setting of warfarin therapy # acute hypoxic respiratory failure -initial sat 70's # h/o Afib on warfarin Exam Vital Signs (Last) Date Time Temp Pulse Resp B/P Pulse Ox O2 Delivery O2 Flow Rate FiO2 8/7/17 10:33 36.4 89 24 180/122 100 Room Air Exam GCS 3/15 pupils dilated ronchi all over no sign of trauma , no laceration Test 12/19/16 08:22 White Blood Count 8.4th/mm3 (3.8-10.1) Red Blood Count 5.32mil/mm3 (3.90-5.20) Hemoglobin 15.2g/dL (12.0-15.6) Hematocrit 46.4% (35.0-46.0) Mean Corpuscular Volume 87.2fL (81-100) Mean Corpuscular Hemoglobin 28.6pg (27.0-35.0) Mean Corpuscular Hemoglobin Concent 32.8% (32.0-37.0) Red Cell Distribution Width 15.0% (12.3-15.4) Platelet Count 235bil/L (150-400) Neutrophils (%) (Auto) 61.5% (40-74) Lymphocytes (%) (Auto) 22.6% (14-46) Monocytes (%) (Auto) 11.9% (4-12) Eosinophils (%) (Auto) 3.5% (0-5) Basophils (%) (Auto) 0.4% (0-3) Prothrombin Time 38.9sec (8.1-12.5) Prothromb Time International Ratio 3.54ratio Activated Partial Thromboplast Time 39.4sec (22.8-33.0) Sodium Level 139mEq/L (134-144) Potassium Level 4.2mEq/L (3.5-5.2) Chloride Level 98mEq/L (97-108) Carbon Dioxide Level 23mmol/L (18-29) Blood Urea Nitrogen 18mg/dL (8-27) Creatinine 0.76mg/dL (0.57-1.00) Estimat Glomerular Filtration Rate 104mL/min (>59) Glucose Level 112mg/dL (60-99) Calcium Level 10.0mg/dL (8.5-10.1) Total Bilirubin 1.6mg/dL (0.0-1.2) Aspartate Amino Transf (AST/SGOT) 23U/L (0-50) Alanine Aminotransferase (ALT/SGPT) 22U/L (0-32) Alkaline Phosphatase 121U/L (25-165) Troponin T 0.010ug/L (0.0-0.011) Total Protein 6.9g/dL (6.4-8.4) Albumin 4.2g/dL (3.4-5.0) Discharge Medications Discharge Medications ([Spironalactone]) 12.5 MG PO DAILY (Reported) HOLD Acetylcysteine (Nac) 600 Mg Capsule 600 MG PO DAILY (Reported) Ascorbate Calcium (Vitamin C) 500 Mg Tablet 500 MG PO DAILY (Reported) Azelastine/Fluticasone (Dymista Nasal Long Bottom) 23 Gm Long Bottom.pump 1 SPRAY NS BID ( Reported) HOLD Cholecalciferol (Vitamin D3) (Vitamin D3) 1,000 Unit Tab.chew 1,000 UNIT PO BID (Reported) Clonidine (Clonidine) 0.1 Mg Tablet 0.1 MG PO TID (Reported) Cyclosporine (Restasis) 1 Each Droperette 1 EACH AFFECT_EYE BID (Reported) Cyclosporine (Restasis) 1 Each Droperette 1 EACH OP Q12H (Reported) Desonide (Desonide Cream) 15 Gm Cream..g. 1 APPLIC TOP DAILY (Reported) Fexofenadine (Fexofenadine) 180 Mg Tablet 180 MG PO DAILY (Reported) HOLD Fluconazole (Fluconazole) 150 Mg Tablet 150 MG PO ONCE (Reported) Fluticasone Propionate (Fluticasone Propionate) 50 Mcg/Actuation Long Bottom.susp 2 SPRAY NS DAILY (Reported) Ipratropium Crawford (Ipratropium Crawford 0.06% Nasal) 15 Ml Long Bottom 2 SPRAY NS DIRECTED (Reported) HOLD Ketoconazole (Ketoconazole) 15 Gm Cream..g. 15 GM TP DIRECTED (Reported) Methylprednisolone (MethylprednisoLONE) 4 Mg Tablet 4 MG PO UD (Reported) Metoprolol Tartrate (Metoprolol Tartrate) 75 Mg Tablet 75 MG PO BID (Reported) Propylene Glycol/Peg 400/Pf (Systane 0.3-0.4% Eye Drops) 1 Each Droperette 1 EACH BOTH_EYES BID (Reported) Ranitidine (Ranitidine) 150 Mg Capsule 150 MG PO BID (Reported) Sertraline HCl (Sertraline) 25 Mg Tablet 25 MG PO DAILY (Reported) Vitamin A (Vitamin A) 25,000 Unit Capsule 25,000 UNIT PO 4x/week (Reported) Vitamin E Mixed (Vitamin E) 400 Unit Capsule 400 UNIT PO DAILY (Reported) Warfarin Sodium (Warfarin Sodium) 4 Mg Tablet 4 MG PO HS (Reported) As needed ([Gas Free Xs]) 125 MG PO BID PRN PRN PRN (Reported) ([Acetaminophen]) 325 MG TABLET 650 MG PO Q6H PRN PRN For Pain Prescribed by: YOLANDA CONNORS PA-C Dimenhydrinate (Dramamine) 25 Mg Tab.chew 50 MG PO Q6H PRN PRN prn (Reported) Melatonin/Pyridoxine (Melatonin 5 mg Tablet) 1 Each Tablet 1 EACH PO HS PRN PRN prn (Reported) Ranitidine (Ranitidine) 150 Mg Capsule 1-2 CAPSULE PO DAILY PRN PRN ALLERGY ( Reported) Zolpidem (Zolpidem) 5 Mg Tablet 5 MG PO HS PRN PRN For Insomnia (Reported) Followup Plan Disposition: copies to: Sudhakar Nick MD, Melaku MD Dec 19, 2016 14:36
== END 2016-12-19 11:02 | disposition expired | DRG 64 ==
LOC: SED 08:11 → OSC 10:21
PROVIDERS: ADMIT Internal Medicine; ATTEND Internal Medicine
DX: I62.9 Nontraumatic intracranial hemorrhage, unspecified (principal); J96.01 Acute respiratory failure with hypoxia; D68.32 Hemorrhagic disorder due to extrinsic circulating anticoagulants; R29.810 Facial weakness; R40.2142 Coma scale, eyes open, spontaneous, at arrival to emergency department; R40.2222 Coma scale, best verbal response, incomprehensible words, at arrival to emergency department; R40.2342 Coma scale, best motor response, flexion withdrawal, at arrival to emergency department; I10 Essential (primary) hypertension; E78.5 Hyperlipidemia, unspecified; I48.91 Unspecified atrial fibrillation; K21.9 Gastro-esophageal reflux disease without esophagitis; Z51.5 Encounter for palliative care; Z66 Do not resuscitate; T45.515A Adverse effect of anticoagulants, initial encounter; I35.1 Nonrheumatic aortic (valve) insufficiency; Z87.891 Personal history of nicotine dependence; Z79.01 Long term (current) use of anticoagulants